=== PATIENT | female | born 1990 | race Caucasian/White ===

== ENCOUNTER → 2024-02-25 12:00 | Outpatient (REF) | payer OTHER, SELFPAY ==
[2024-02-25 12:28] VITALS: BP 133/98; BP_SYST 105
[2024-02-25 13:10] VITALS: BP 137/101; BP_SYST 100
[2024-02-25 13:25] VITALS: BP 137/101
== END ==
LOC: RADI 12:00
PROVIDERS: ATTENDING PHYSICIAN Nurse Practitioner Family
DX: Z49.01 Encounter for fitting and adjustment of extracorporeal dialysis catheter (principal)
CPT/HCPCS: 36589